=== PATIENT | female | born 1995 | race Caucasian/White ===

== ENCOUNTER 2019-07-28 08:00 | Emergency (ER) | payer OTHER, SELFPAY ==
[2019-07-28 08:16] VITALS: BP 119/64; PULSE 104; RESP 20; TEMP 36.9; O2SAT 100
--- NOTE | 2019-07-28 08:16 | ED.GENADULT ---
HPI - General Adult General Chief complaint: Upper Respiratory Infection Stated complaint: nausea dizziness upper respiratory Time Seen by Provider: 07/28/19 08:20 Source: patient and RN notes reviewed Mode of arrival: ambulatory Limitations: no limitations History of Present Illness HPI narrative: 23 year old female who presents to [facility] care with complaints of intermittent dizziness and nausea and vomiting. Patient states that approximately 3 weeks ago she had cough, fever, dizziness and was seen at the emergency room at [facility] emergency room and received cough medication and was told to quarantine for 2 weeks. Patient states that she returned to work today and experienced dizziness, pressure to her ears and nausea with episode of vomiting. Patient denies any sore throat, cough, feelings of congestion or any recent fevers, chills or sweats, denies any abdominal pain or any incidence of diarrhea. Respirations even and non labored with no tachypnea or accessory muscle use, SAO2 100% on room air. Denies any increase dizziness with position changes, no nystagmus noted. MD complaint: dizziness Onset (ago): day(s) (1) Radiation: non-radiation Severity: mild Quality: other (no pain stated) Pain Consistency: intermittent Relieving factors: none Exacerbating factors: none Associated symptoms: nausea/vomiting and other (dizziness, ear pressure) Treatments prior to arrival: none Related Data Home Medications Medication Instructions Recorded Confirmed buspirone 10 mg PO BID 07/28/19 07/28/19 dicyclomine 20 mg PO BID 07/28/19 07/28/19 norgestimate-ethinyl estradiol 1 tablet PO DAILY 07/28/19 07/28/19 [Estarylla] Allergies Allergy/AdvReac Type Severity Reaction Status Date / Time No Known Allergies Allergy Unknown Verified 07/28/19 08:36 Review of Systems Review of Systems: Narrative: CONSTITUTIONAL: Denies fever, chills, or sweats. EYES: Denies visual changes, redness, or discharge. ENT: Denies rhinorrhea, congestion, sore throat, states some ear pressure no pain. CARDIOVASCULAR: Denies chest pain, palpitations, or edema. RESPIRATORY: Denies cough or dyspnea. GASTROINTESTINAL: Denies abdominal pain, positive nausea and vomiting no diarrhea GENITOURINARY: Denies dysuria or hematuria. SKIN: Denies rash or itching. MUSCULOSKELETAL: Denies back pain, joint pain, or myalgia. NEUROLOGIC: Denies headache, numbness, or weakness.States intermittent dizziness. PSYCHIATRIC: Denies anxiety or depression. All systems reviewed & are unremarkable except as noted in HPI and below PMFSH Past Medical History Medical History (Updated 07/29/19 @ 00:00 by Mila Murphy) Asthma BV (bacterial vaginosis) GERD (gastroesophageal reflux disease) Surgical History Surgical History (Updated 07/28/19 @ 08:20 by Melisa Ellison NP) History of elbow surgery Social History Social History (Updated 07/30/19 @ 10:48 by Melisa Ellison NP) Smoking status: Never smoker Gender identity (if verbalized by the patient): Female Comments At time of signature, agree with nursing past medical, surgical, social history. There is no relevant family history pertinent to the presenting complaint Exam Narrative: Exam Narrative: GENERAL: Well-appearing, well-nourished, and in no acute distress. HEAD: Normocephalic, atraumatic. EYES: PERRLA and EOMI. ENT: Nares clear, no rhinorrhea or epistaxis. Mucous membranes moist.TM'a normal with good light reflex, throat mild redness with no lesions or exudates, no tonsil enlargement, post nasal drainage noted. NECK: Supple.lymphadenopathy CHEST: Clear to auscultation. No respiratory distress.SAO2 100% on room air HEART: Regular rate and rhythm. No murmur heard. Normal peripheral pulses. ABDOMEN: Soft, nontender, nondistended, normal active bowel sounds. EXTREMITIES: Normal range of motion. No edema. SKIN: Warm, dry, no rash. NEURO: No focal deficits. Alert and oriented x3.moves all extremities on own po
== END 2019-07-28 09:03 | disposition home or self-care (01) ==
PROVIDERS: Emergency Provider Registered Nurse; PCP Internal Medicine
DX: R42 Dizziness and giddiness (principal); R11.2 Nausea with vomiting, unspecified; J45.909 Unspecified asthma, uncomplicated; K21.9 Gastro-esophageal reflux disease without esophagitis
CPT/HCPCS: 87081; 87880; 99213; G0463

== ENCOUNTER 2021-11-13 09:45 | Emergency (ER) | payer OTHER, SELFPAY ==
[2021-11-13 09:54] VITALS: BP 112/66; PULSE 90; RESP 14; TEMP 36.8; O2SAT 100
--- NOTE | 2021-11-13 10:14 | ED.ALLEREA ---
HPI - Allergic Reaction General Chief complaint: Allergic Reaction Stated complaint: Allergic Reaction Time Seen by Provider: 11/13/21 10:14 Source: patient, RN notes reviewed and old records reviewed Mode of arrival: ambulatory Limitations: no limitations History of Present Illness HPI narrative: 25 year old female presents to [facility] care with complaints of allergic reaction to new prescription face cream that she first applied on evening11/10/2021. Patient reports that she applied Clindamycin with Benzo-peroxide also on Sunday11/11/2021. On Sunday morning 11/12/2021 she noted rash on face and neck and upper eyelids. Patient today has increased swelling of eyes and increased redness of her her face and neck.Patient denies any shortness of breath or any difficulty with her swallowing. MD complaint: allergic reaction and facial swelling Onset (ago): day(s) (1) Exposure: medication Known history of allergy to: no known allergies Symptoms: rash and other (eyes swelling) Severity: moderate Treatment prior to arrival: benadryl and other (stopped medication Sunday) Previous Allergic Reaction History: none Related Data Allergies Allergy/AdvReac Type Severity Reaction Status Date / Time No Known Allergies Allergy Unknown Verified 11/13/21 10:14 Review of Systems Review of Systems: CONSTITUTIONAL: Denies fever, chills, or sweats. EYES: Denies visual changes, redness, or discharge. ENT: Denies rhinorrhea, congestion, sore throat, or otalgia. CARDIOVASCULAR: Denies chest pain, palpitations, or edema. RESPIRATORY: Denies cough or dyspnea. GASTROINTESTINAL: Denies abdominal pain, nausea, vomiting, or diarrhea. GENITOURINARY: Denies dysuria or hematuria. SKIN: Positive for rash or itching to face and neck, swelling to eyes MUSCULOSKELETAL: Denies back pain, joint pain, or myalgia. NEUROLOGIC: Denies headache, numbness, or weakness. PSYCHIATRIC: Denies anxiety or depression. All systems reviewed & are unremarkable except as noted in HPI and below PMFSH Past Medical History Medical History (Updated 11/13/21 @ 17:17 by Melisa Ellison NP) Acne Asthma BV (bacterial vaginosis) GERD (gastroesophageal reflux disease) Surgical History Surgical History (Updated 11/13/21 @ 11:16 by Melisa Ellison NP) History of elbow surgery History of tonsillectomy Social History Social History (Updated 11/13/21 @ 17:16 by Melisa Ellison NP) Smoking status: Never smoker Alcohol intake: current Substance use type: does not use Living arrangements: with family Gender identity (if verbalized by the patient): Female Comments At time of signature, agree with nursing past medical, surgical, social and family history. There is no relevant family history pertinent to the presenting complaint Exam Narrative: GENERAL: Well-appearing, well-nourished, and in no acute distress. HEAD: Normocephalic, atraumatic. EYES: PERRLA and EOMI.swelling of upper eye lids and under eyes, denies any acute pain to eyes or itching ENT: Nares clear, no rhinorrhea or epistaxis. Mucous membranes moist.TM;s normal with good light reflex, throat pink with no lesions or exudates, no tonsils present, no throat swelling NECK: Supple.no lymphadenopathy CHEST: Clear to auscultation. No respiratory distress.SAO2 100% on room air, denies any shortness of breath HEART: Regular rate and rhythm. No murmur heard. Normal peripheral pulses. ABDOMEN: Soft, nontender, nondistended, normal active bowel sounds. EXTREMITIES: Normal range of motion. No edema. SKIN: Warm, dry, no rash. NEURO: No focal deficits. Alert and oriented x3. Course Course Level of Care: Express Care Visit Vital Signs Vital signs: Vital Signs Temperature 36.8 C 11/13/21 09:54 Pulse Rate 90 11/13/21 09:54 Respiratory Rate 14 11/13/21 09:54 Blood Pressure 112/66 11/13/21 09:54 Pulse Oximetry 100 11/13/21 09:54 Oxygen Delivery Room Air 11/13/21 09:54 Temperatur
[2021-11-13 10:45] VITALS: PULSE 62; RESP 20; O2SAT 100
[2021-11-13] MEDS: methylPREDNISolone ACETATE 80 MG/ML VIAL IM (10:48)
[2021-11-13 11:15] VITALS: BP 98/60; PULSE 64; RESP 20; O2SAT 100
--- NOTE | 2021-11-13 12:38 | PC.NURSE ---
11/13/21 1030 CALLED KRISTY AT [facility] DUE TO DEPO MEDROL ORDER WHEN MED SCANNED MESSAGE DISPLAYED THAT THIS MEDICINE IS NOT ASSOCIATED WITH THIS PT. KRISTY REVIEWED THE ORDER AND NOT ABLE TO DETERMINE WHY THIS WAS OCCURING. KRISTY PLACED 2 MORE DEPO MEDROL ORDERS WHICH DID THE SAME THING WHEN SCANNED. KRISTY ADVISED THIS RN TO OVER RIDE THE MEDICATION TO BE ABLE TO ADMINISTER MEDICATION. ORDER OVERRODE AND DEPO MEDROL 80 MG GIVEN IM AT 1048. ZAIN LEWIS RN ALSO VERIFIED THAT CORRECT MEDICATION GIVEN TO CORRECT PT A WITNESS. RASHARD LEONARD ROD POINTER AWARE. ALL ORDERS NOT USED CANCELLED BY KRISTY IN PHARMACY. TRAY TURNER RN
== END 2021-11-13 11:30 | disposition home or self-care (01) ==
PROVIDERS: Emergency Provider Registered Nurse; PCP Internal Medicine
DX: R21 Rash and other nonspecific skin eruption (principal); H02.844 Edema of left upper eyelid; H02.841 Edema of right upper eyelid; T49.0X5A Adverse effect of local antifungal, anti-infective and anti-inflammatory drugs, initial encounter; J45.909 Unspecified asthma, uncomplicated; K21.9 Gastro-esophageal reflux disease without esophagitis
CPT/HCPCS: 96372; 99213; G0463; J1040

== ENCOUNTER 2021-12-30 16:01 | Emergency (ER) | payer OTHER, SELFPAY ==
[2021-12-30 16:07] VITALS: BP 128/73; PULSE 88; RESP 20; TEMP 36.8; O2SAT 99
--- NOTE | 2021-12-30 16:28 | ED.FEMALEGU ---
HPI - Female Genitourinary General Chief complaint: Urogenital-Female Stated complaint: Bacteria infection Time Seen by Provider: 12/30/21 16:10 Source: patient Mode of arrival: ambulatory Limitations: no limitations History of Present Illness HPI Narrative: Elidia is a 26-year-old female patient presenting to the clinic today with complaints of vaginal discharge x1 to 2 days. She reports she is also having some slight back pain. States that she is not having any pain with urination until it is going over her perineal area and states wiping is causing some discomfort. She reports having clearish white vaginal discharge. Reports using a new fragrant soap and thinks that she may have gotten bacterial vaginosis. She has had bacterial vaginosis in the past and states the symptoms were similar. She is not concerned about any STIs. She is in a monogamous relationship with her fianc?. He denies any symptoms. She is currently not taking any control. Last menstrual period was last month. Is unaware if there is a chance for . Related Data Allergies Allergy/AdvReac Type Severity Reaction Status Date / Time No Known Allergies Allergy Unknown Verified 12/30/21 16:22 Review of Systems Review of Systems: Pertinent positives per HPI. Patient denies any fever, chills, rash, headache, visual changes, dizziness, cough, runny nose, sore throat, shortness of breath, chest pain, palpitations, nausea, vomiting, diarrhea, constipation, abdominal pain, or any urinary issues. [facility] [place] Past Medical History Medical History Acne Asthma BV (bacterial vaginosis) GERD (gastroesophageal reflux disease) Surgical History Surgical History History of elbow surgery History of tonsillectomy Social History Social History Smoking status: Never smoker Alcohol intake: current Substance use type: does not use Gender identity (if verbalized by the patient): Female Comments At the time of my signature, I reviewed and agree with the nursing past medical, surgical, social, and family history. There is no relevant family history pertinent to the patient complaint. Exam Narrative: General: Well-developed, well nourished, in no apparent distress. Head: Normocephalic, atraumatic. Cardio: Regular rate and rhythm, s1 and s2 normal, no murmur appreciated. Resp: Clear to auscultation bilaterally, no rhonchi, rales, wheezing or rubs. Abdomen: Soft, pliable, bowel sounds present in all quadrants, mild tender to palpation over the pelvis, no organomegly, no CVAT tenderness. : Deferred Course Course Emergency Course: Portions of this record may have been created with voice recognition software. Level of Care: Express Care Visit Vital Signs Vital signs: Vital Signs Temperature 36.8 C 12/30/21 16:07 Pulse Rate 88 12/30/21 16:07 Respiratory Rate 20 12/30/21 16:07 Blood Pressure 128/73 12/30/21 16:07 Pulse Oximetry 99 12/30/21 16:07 Oxygen Delivery Room Air 12/30/21 16:07 Temperature 36.8 C 12/30/21 16:07 Pulse Rate 88 12/30/21 16:07 Respiratory Rate 20 12/30/21 16:07 Blood Pressure 128/73 12/30/21 16:07 Pulse Oximetry 99 12/30/21 16:07 Oxygen Delivery Room Air 12/30/21 16:07 Vital signs reviewed MDM - Female Genitourinary MDM Narrative Medical decision making narrative: At the time of visit patient is resting comfortably on the exam table. She has a clearish white vaginal discharge that is abnormal for her. I suspect that the patient has neuro vaginosis and will give her a prescription for some MetroGel. Supportive measures were discussed with the patient she voiced understanding of discharge instructions and agrees to treatment plan. UA negative for Differential Diagnosis Differential di
== END 2021-12-30 16:38 | disposition home or self-care (01) ==
PROVIDERS: Emergency Provider Nurse Practitioner Family; PCP Internal Medicine
DX: N76.0 Acute vaginitis (principal); J45.909 Unspecified asthma, uncomplicated; K21.9 Gastro-esophageal reflux disease without esophagitis
CPT/HCPCS: 81025; 99213; G0463

== ENCOUNTER 2022-05-03 14:46 | Emergency (ER) | payer OTHER, SELFPAY ==
--- NOTE | ~2022-05-03 | XR_ITS ---
EXAMINATION: XR chest 2V, XR abdomen obstructive series DATE: 05/03/2022 15:21 INDICATION: Left anterior chest pain. Right upper quadrant abdominal and umbilical pain. TECHNIQUE: 1. PA and lateral views of the chest were obtained. 2. Upright view of the abdomen and supine AP view of the abdomen and pelvis were obtained. COMPARISON: None FINDINGS: Chest: The lungs are clear with no focal airspace opacities, pulmonary edema, pleural effusion or pneumothor ax. The cardiomediastinal silhouette is normal. 12 degree upper thoracic levoscoliosis and 12 degree mid thoracic dextroscoliosis. Obstructive series: Moderate to large amount of stool scattered throughout the colon. No dilated loops of gas-filled lazaro l to suggest obstruction. No free intraperitoneal gas. A few phleboliths in the pelvis. IMPRESSION: 1. No acute cardiopulmonary disease. 2. Moderate to large amount of colonic stool. Otherwise unremarkable obstructive series. Reviewed, dictated and finalized at location A. [employer] EST[employer]RAF[employer] IMPRESSION: 1. No acute cardiopulmonary disease. 2. Moderate to large amount of colonic stool. Otherwise unremarkable obstructiv e series.
[2022-05-03 14:50] VITALS: BP 118/69; PULSE 82; RESP 20; TEMP 37; O2SAT 99
--- NOTE | 2022-05-03 15:00 | ED.CHESTPAIN ---
HPI - Chest Pain General Chief Complaint: Chest Pain Stated Complaint: Chest Pain Time Seen by Provider: 05/03/22 15:00 Source: patient Mode of arrival: ambulatory Limitations: no limitations History of Present Illness HPI narrative: 26-year-old female presents with complaint of left-sided chest tenderness on palpation starting yesterday. Also reports that it feels tight around her abdomen just below her ribcage. Denies urinary symptoms. Reports that she is having normal bowel movements. States several days ago she had diarrhea but it had resolved. Afebrile. No other complaints today. All systems reviewed and negative except as noted above. Related Data Home Medications Medication Instructions Recorded Confirmed No Home Medications 05/03/22 05/03/22 Allergies Allergy/AdvReac Type Severity Reaction Status Date / Time No Known Allergies Allergy Unknown Verified 05/03/22 14:58 Review of Systems Review of Systems: CONSTITUTIONAL: Denies fever, chills, or sweats. EYES: Denies visual changes, redness, or discharge. ENT: Denies rhinorrhea, congestion, sore throat, or otalgia. CARDIOVASCULAR: Denies chest pain, palpitations, or edema. RESPIRATORY: Denies cough or dyspnea. GASTROINTESTINAL: Denies abdominal pain, nausea, vomiting, or diarrhea. GENITOURINARY: Denies dysuria or hematuria. SKIN: Denies rash or itching. MUSCULOSKELETAL: Reports left-sided chest tenderness. Denies back pain, joint pain, or myalgia. NEUROLOGIC: Denies headache, numbness, or weakness. PSYCHIATRIC: Denies anxiety or depression. All other systems reviewed are negative, except as documented in HPI. [facility] Past Medical History Medical History Acne Asthma BV (bacterial vaginosis) GERD (gastroesophageal reflux disease) Surgical History Surgical History History of elbow surgery History of tonsillectomy Social History Social History Smoking status: Never smoker Alcohol intake: current Substance use type: does not use Gender identity (if verbalized by the patient): Female Comments At time of signature, agree with nursing past medical, surgical, social and family history. There is no relevant family history pertinent to the presenting complaint. Exam Narrative: GENERAL: This is a well-nourished, well-developed patient, in no apparent distress. HEAD: normocephalic, atraumatic. EYES: PERRL. Sclera clear/white. Vision is grossly intact. EARS: External ears normal NOSE: External nose normal NECK: Neck supple, non-tender without lymphadenopathy, masses or thyromegaly. CARDIOVASCULAR: Regular rate and rhythm without murmurs, gallops, or rubs. RESPIRATORY: Clear to auscultation. Breath sounds equal bilaterally. No wheezes, rales, or rhonchi. GASTROINTESTINAL: Abdomen soft, epigastric, right upper quadrant, umbilical tenderness on palpation.. Bowel sounds are Hypoactive. No hepato-splenomegaly, or palpable masses. No guarding. SKIN: warm, Dry, intact with no suspicious lesions or rash, good texture and turgor. NEURO: awake, alert, and oriented to person, place and time. There were no obvious focal neurologic abnormalities. EXTREMITIES: No joint tenderness, effusion, or edema noted. MUSCULOSKELETAL: L sided tenderness on palpation of chest Course Course Level of Care: Express Care Visit Vital Signs Vital signs: Vital Signs Temperature 37.0 C 05/03/22 14:50 Pulse Rate 82 05/03/22 14:50 Respiratory Rate 20 05/03/22 14:50 Blood Pressure 118/69 05/03/22 14:50 Pulse Oximetry 99 05/03/22 14:50 Oxygen Delivery Room Air 05/03/22 14:50 Temperature 37.0 C 05/03/22 14:50 Pulse Rate 82 05/03/22 14:50 Respiratory Rate 20 05/03/22 14:50 Blood Pressure 118/69 05/03/22 14:50 Pulse Oximetry 99 05/03/22 14:50 Ox
--- NOTE | 2022-05-03 15:05 | ECG_ITS ---
Measurements Intervals [place] Rate: 74 P: 43 SD: 173 QRS: 82 QRSD: 88 T: 49 QT: 375 QTc: 416 Interpretive Statements SINUS RHYTHM WITH SINUS ARRHYTHMIA INCOMPLETE RIGHT BUNDLE BRANCH BLOCK BASELINE ARTIFACT- I, II, V5 BORDERLINE ECG NO PREVIOUS ECG AVAILABLE FOR COMPARISON Electronically Signed On 05-03-2022 19:14:50 SUBSTATION TECHNICIAN by Surya Kim D.O.
== END 2022-05-03 15:55 | disposition home or self-care (01) ==
PROVIDERS: Emergency Provider Nurse Practitioner Family; PCP Internal Medicine
DX: K59.00 Constipation, unspecified (principal); J45.909 Unspecified asthma, uncomplicated; K21.9 Gastro-esophageal reflux disease without esophagitis
CPT/HCPCS: 71046; 74019; 93005; 99213; G0463

== ENCOUNTER 2022-08-18 13:20 | Emergency (ER) | payer OTHER, SELFPAY ==
--- NOTE | 2022-08-18 13:25 | ED.URI ---
HPI - URI/Sore Throat General Chief Complaint: Upper Respiratory Infection Stated Complaint: Sore Throat/Ear Pain Time Seen by Provider: 08/18/22 13:25 Source: patient and RN notes reviewed History of Present Illness HPI Narrative: Patient is a 26-year-old female who presents to urgent care with complaints of 9 day history of drainage, ear pain, sore throat. Patient states that on Sunday she use her Neti pot which did help with her symptoms. Patient denies any fever, nausea or vomiting. States that she has been taking DayQuil and NyQuil without much relief. No other acute complaints. No acute distress noted. Patient aware of the plan of care. Some parts of this dictation were generated by voice recognition software and may contain typographical and/or grammatical inaccuracies. Related Data Allergies Allergy/AdvReac Type Severity Reaction Status Date / Time clindamycin Allergy Swelling Verified 08/18/22 13:29 Review of Systems Review of Systems: CONSTITUTIONAL: Denies fever, chills, or sweats. EYES: Denies visual changes, redness, or discharge. ENT: Reports of congestion, drainage, sore throat bilateral otalgia CARDIOVASCULAR: Denies chest pain, palpitations, or edema. RESPIRATORY: Denies cough or dyspnea. GASTROINTESTINAL: Denies abdominal pain, nausea, vomiting, or diarrhea. GENITOURINARY: Denies dysuria or hematuria. SKIN: Denies rash or itching. MUSCULOSKELETAL: Denies back pain, joint pain, or myalgia. NEUROLOGIC: Denies headache, numbness, or weakness. All other systems reviewed are negative, except as documented in HPI. [facility] Past Medical History Medical History Acne Asthma BV (bacterial vaginosis) GERD (gastroesophageal reflux disease) Surgical History Surgical History History of elbow surgery History of tonsillectomy Social History Social History Smoking status: Never smoker Alcohol intake: current Substance use type: does not use Living arrangements: with family Gender identity (if verbalized by the patient): Female Comments At the time of my signature, I reviewed and agree with the nursing past medical, surgical, social, and family history. There is no relevant family history pertinent to the patient complaint. Exam Narrative: GENERAL: This is a well-nourished, well-developed patient, in no apparent distress. HEAD: normocephalic, atraumatic. EYES: PERRL. Sclera clear/white. Vision is grossly intact. EARS: External ears normal, auditory canals clear and without drainage, [id number] effusion to the right without otitis. He TMs normal without perforation. Hearing grossly intact. NOSE: External nose normal with no obvious nasal discharge, nares without redness, no rhinorrhea. THROAT: Mucous membranes moist, posterior pharynx clear. Moderate postnasal drainage NECK: Neck supple, non-tender without lymphadenopathy CARDIOVASCULAR: Regular rate and rhythm without murmurs, gallops, or rubs. RESPIRATORY: Clear to auscultation. Breath sounds equal bilaterally. No wheezes, rales, or rhonchi. SKIN: warm, intact with no suspicious lesions or rash, good texture and turgor. NEURO: awake, alert, and oriented to person, place and time. There were no obvious focal neurologic abnormalities. EXTREMITIES: No clubbing, cyanosis, or edema. Course Course Level of Care: Express Care Visit Vital Signs Vital signs: Vital Signs Temperature 98.0 F 08/18/22 13:31 Pulse Rate 89 08/18/22 13:31 Respiratory Rate 16 08/18/22 13:31 Blood Pressure 116/74 08/18/22 13:31 Pulse Oximetry 99 08/18/22 13:31 Oxygen Delivery Room Air 08/18/22 13:31 Temperature 98.0 F 08/18/22 13:31 Pulse Rate 89 08/18/22 13:31 Respiratory Rate 16 08/18/22 13:31 Blood Pressure 116/74 08/18/22 13:31 Pulse Oxi
[2022-08-18 13:31] VITALS: BP 116/74; PULSE 89; RESP 16; TEMP 36.7; O2SAT 99
== END 2022-08-18 14:08 | disposition home or self-care (01) ==
PROVIDERS: Emergency Provider Nurse Practitioner Family; PCP Internal Medicine
DX: J32.9 Chronic sinusitis, unspecified (principal); J45.909 Unspecified asthma, uncomplicated; K21.9 Gastro-esophageal reflux disease without esophagitis
CPT/HCPCS: 87081; 87880; 99213; G0463

== ENCOUNTER 2023-05-27 15:16 | Emergency (ER) | payer OTHER, SELFPAY ==
[2023-05-27 15:20] VITALS: BP 120/59; PULSE 99; RESP 18; TEMP 36.9; O2SAT 100
[2023-05-27 15:35] VITALS: BP 120/59; PULSE 99; RESP 18; TEMP 36.9; O2SAT 100
--- NOTE | 2023-05-27 15:50 | ED.GENADULT ---
HPI - General Adult General Chief complaint: Upper Respiratory Infection Stated complaint: throat/ear/headaches Source: patient Mode of arrival: ambulatory Limitations: no limitations History of Present Illness HPI narrative: Patient presents for evaluation of sick symptoms for last 3 weeks. Symptoms include sore throat, right-sided otalgia, and sensation that she is not taking as deep of breaths. No fever, chills, nausea, vomiting, diarrhea, cough, shortness of breath. She initially saw her PCP for this and was given amoxicillin 500mg po TID x 5 days. She has been taking dayquil and nyquil for her symptoms. She does not smoke. Related Data Home Medications Medication Instructions Recorded Confirmed cetirizine 10 mg tablet 10 mg PO DAILY 05/27/23 05/27/23 Allergies Allergy/AdvReac Type Severity Reaction Status Date / Time clindamycin Allergy Swelling Verified 05/27/23 15:33 Review of Systems Review of Systems: CONSTITUTIONAL: Denies fever, chills, or sweats. EYES: Denies visual changes, redness, or discharge. ENT: Reports sore throat and right-sided otalgia. CARDIOVASCULAR: Denies chest pain, palpitations, or edema. RESPIRATORY: Reports sensation that she is not taking as deep of breaths as normal. Denies cough or dyspnea. GASTROINTESTINAL: Denies abdominal pain, nausea, vomiting, or diarrhea. GENITOURINARY: Denies dysuria or hematuria. SKIN: Denies rash or itching. MUSCULOSKELETAL: Denies back pain, joint pain, or myalgia. NEUROLOGIC: Denies headache, numbness, dizziness, or weakness. PSYCHIATRIC: Denies anxiety or depression. [facility] Past Medical History Medical History Acne Asthma BV (bacterial vaginosis) GERD (gastroesophageal reflux disease) Surgical History Surgical History History of elbow surgery History of tonsillectomy Family History Family History Mother Family history non-contributory Social History Social History Smoking status: Never smoker Alcohol intake: current Substance use type: does not use Living arrangements: with family Gender identity (if verbalized by the patient): Female Sexual Orientation (if Verbalized by the Patient): Straight or Heterosexual Spiritual care concerns: No Exam Narrative: GENERAL: Well-appearing, well-nourished, and in no acute distress. HEAD: Normocephalic, atraumatic. EYES: PERRLA and EOMI. ENT: Nares clear, no rhinorrhea or epistaxis. Mucous membranes moist. Oropharynx without tonsillar hypertrophy exudate or other lesions. Bilateral TMs pearly barba nonbulging NECK: Supple. No adenopathy or masses. No carotid bruits or JVD CHEST: Clear to auscultation. No respiratory distress. No wheezes rales or rhonchi HEART: Regular rate and rhythm. No murmur heard. Normal peripheral pulses. ABDOMEN: Soft, nontender, nondistended, normal active bowel sounds. EXTREMITIES: Normal range of motion. No edema. SKIN: Warm, dry, no rash. NEURO: No focal deficits. Alert and oriented x3. PSYCH: Normal mood and affect. Course Course Emergency Course: This is a 27 year old female who presented for evaluation of sick symptoms. She has some yellow nasal drainage with symptom duration three weeks in addition to her sore throat. COVID, influenza, strep, mono were all negative. Will treat with Augmentin. Increase hydration. [id number] agents for symptom management. Follow up with primary provider. Go to the ER for worsening symptoms. Pt in agreement with plan of care. Level of Care: Express Care Visit Vital Signs Vital signs: Vital Signs Temperature 36.9 C 05/27/23 15:20 Pulse Rate 99 05/27/23 15:20 Respiratory Rate 18 05/27/23 15:20 Blood Pressure 120/59 L 05/27/23 15:20 Pulse Oxim
== END 2023-05-27 16:15 | disposition home or self-care (01) ==
PROVIDERS: Emergency Provider Nurse Practitioner; PCP Internal Medicine
DX: J02.9 Acute pharyngitis, unspecified (principal); Z20.822 Contact with and (suspected) exposure to COVID-19; J45.909 Unspecified asthma, uncomplicated; K21.9 Gastro-esophageal reflux disease without esophagitis
CPT/HCPCS: 36416; 81025; 86308; 87081; 87426; 87804; 87880; 99213; G0463